=== PATIENT | male | born 2005 | race Caucasian/White ===

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

== ENCOUNTER → 2024-11-24 | Outpatient (CLI) | payer OTHER, SELFPAY | END | disposition home or self-care (01) | PROVIDERS: PCP Pediatrics | DX: H95.01 Recurrent cholesteatoma of postmastoidectomy cavity, right ear (principal) | CPT/HCPCS: 88305 ==